=== PATIENT | male | born 1955 | race African-American/Black ===

== ENCOUNTER 2024-12-13 11:31 | Emergency (ER) | payer MEDICARE, MEDICAID ==
[~2024-12-13] VITALS: Ht 182.9 cm; Wt 90.0 kg
[2024-12-13 11:42] VITALS: O2SAT 98
[2024-12-13 12:33] LABS: BASOPHILS % 0.8 % (0.0-2.0); EOSINOPHILS % 4.3 % (0.0-5.0); HEMATOCRIT. 38.3 % (42.0-52.0); HEMOGLOBIN. 12.6 g/dL (14.0-18.0); LYMPHOCYTES % 19.7 % (20.0-50.0); MEAN PLATELET VOLUME 7.4 fl (7.4-10.4); MONOCYTES % 11.5 % (2.0-8.0); NEUTROPHILS % 63.7 % (40.0-76.0); PLATELET 231 x1000/uL (130-400); RED BLOOD CELL COUNT 4.19 mill/uL (4.7-6.1); RED CELL DISTRIBUTION WIDTH 13.4 % (11.6-14.6)
[2024-12-13 12:53] LABS: CREATININE 2.1 mg/dL (0.6-1.3); UREA NITROGEN BLOOD 19 mg/dL (9-23)
[2024-12-13 12:54] LABS: TROPONIN I HIGH SENSITIVITY 28 ng/L (3.0-53)
[2024-12-13 14:56] VITALS: BP 176/83; PULSE 99; RESP 16; TEMP 36.6; O2SAT 98
== END 2024-12-13 14:59 | disposition home or self-care (01) ==
LOC: ER 11:31
DX: I89.0 Lymphedema, not elsewhere classified (principal); Z98.890 Other specified postprocedural states; Z85.819 Personal history of malignant neoplasm of unspecified site of lip, oral cavity, and pharynx
CPT/HCPCS: 36415; 71045; 80048; 83880; 84484; 85025; 93005; 99285